=== PATIENT | female | born 1980 | race Caucasian/White ===

== ENCOUNTER 2016-12-11 08:45 | Emergency (ER) | payer SELFPAY ==
--- NOTE | 2016-12-17 11:01 | ER ---
ADMIT: 12/11/2016 RM/LOC: ER [facility] MR#: [id number] [place], [place] [id number] JAS PINA [address] [facility] [address] [place] [address] Emergency Room Report SEX: F AGE: 36 : 1980 DATE: 12/11/2016 ADDENDUM: A 36-year-old white female coming in with cough, persistent probably for 3 weeks. She does have asthma. She is not a smoker. She says she kind of runs low-grade fevers. She also has significant history that she had breast cancer at a young age. She is only 36. She has been 3 years out and free. She does follow with a doctor, but she has recently moved to town, so she is going to have to switch to some others. I did child and family counselor her about this, and she is going to. She does have adequate coverage at this time as far as insurance so that is not a problem. She may have a rare wheeze. She does have a nebulizer at home. I put her on prednisone and then a Z-Oseas, and then, she needs to follow up within about a week if she is not better but also a week to get in to her doctor and make an appointment. Bert Pastrana MD/ marjorie JOB #: [id number] CC: Bert Pastrana MD, Attending Physician Julia Kim MD, Family Physician Julia Kim MD
== END 2016-12-11 09:45 | disposition home or self-care (01) ==
LOC: ER 08:45
DX: J44.1 Chronic obstructive pulmonary disease with (acute) exacerbation (principal); Z85.3 Personal history of malignant neoplasm of breast; R50.9 Fever, unspecified